=== PATIENT | female | born 2000 | race Caucasian/White ===

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

== ENCOUNTER 2018-12-26 19:10 | Emergency (ER) | payer OTHER ==
[2018-12-26] MEDS ORDERED: Ketorolac 60 MG/2 ML SDV IM ONE (19:26)
--- NOTE | 2018-12-26 19:31 | EDM.PDOC ---
ED HPI GENERAL MEDICAL PROBLEM - General Chief Complaint: Back Pain or Injury Stated Complaint: BACK PAIN Time Seen by Provider: 12/26/18 19:22 Source of Information: Reports: Patient History Limitations: Reports: No Limitations - History of Present Illness INITIAL COMMENTS - FREE TEXT/NARRATIVE: HISTORY AND PHYSICAL: History of present illness: Patient is a 18-year-old female who presents to the emergency room with complaints of low lumbar back pain. She reports earlier this afternoon she was bending over to pick something up when she felt a "pop" to her low back. She states throughout the day she has had generalized back pain across her lumbar region which occasionally will shoot up her spine or down her left leg. She denies any injury, trauma or falls. Denies any urinary or fecal incontinence. Denies any numbness, tingling or saddle paresthesia. Patient denies any fever, chills, headache, change in vision, syncope or near syncope. Denies any chest pain, back pain, shortness of breath or cough. Denies any abdominal pain, nausea, vomiting, diarrhea, constipation or dysuria. Has not noted any blood in urine or stool. Patient has been eating and drinking appropriately. Review of systems: As per history of present illness and below otherwise all systems reviewed and negative. Past medical history: As per history of present illness and as reviewed below otherwise noncontributory. Surgical history: As per history of present illness and as reviewed below otherwise noncontributory. Social history: See social history for further information Family history: As per history of present illness and as reviewed below otherwise noncontributory. Physical exam: General: Well-developed and well-nourished 18-year-old female. Alert and oriented. Nontoxic appearing and in no acute distress. HEENT: Atraumatic, normocephalic, pupils equal and reactive bilaterally, negative for conjunctival pallor or scleral icterus, mucous membranes moist, TMs normal bilaterally, throat clear, neck supple, nontender, trachea midline. No drooling or trismus noted. No meningeal signs. No hot potato voice noted. Lungs: Clear to auscultation, breath sounds equal bilaterally, chest nontender. Heart: S1S2, regular rate and rhythm without overt murmur Abdomen: Soft, nondistended, nontender. Negative for masses or hepatosplenomegaly. Negative for costovertebral tenderness. Pelvis: Stable nontender. C-spine/Back: No pinpoint vertebral tenderness upon palpation. No crepitus, step -offs or obvious deformities. Patient is ambulatory into the emergency room without difficulty or deficit. Able to rock back on heels and walk on toes. Denies any urinary or fecal incontinence. Denies any numbness, tingling or saddle paresthesia. Skin: Intact, warm, dry. No lesions or rashes noted. Extremities: Atraumatic, moves all extremities per self without difficulty or deficits, negative for cords or calf pain. Neurovascular unremarkable. Neuro: Awake, alert, oriented. Cranial nerves II through XII unremarkable. Cerebellum unremarkable. Motor and sensory unremarkable throughout. Exam nonfocal. Notes: X-ray shows mild levoscoliosis, narrowing of L5-S1, which may be physiologic. Medication education and supportive care measures were reviewed and discussed. Voices understanding and is agreeable to plan of care. Denies any further questions or concerns at this time. Diagnostics: UA, HCGU, Lumbar back xray Therapeutics: Toradol IM Prescription: Flexeril and Diclofenac Impression: Lumbar back pain with sciatica Plan: 1. When resting please lay on a flat firm surface. Limit your immobility to prevent muscle stiffness. Get up to ambulate/move around/gentle stretching multiple times throughout the day. May alternate heat and ice to the painful areas 2. Tylenol as needed for back pain. Otherwise take the prescribed Flexeril and diclofenac as directed. Diclofenac is an anti-inflammatory so do not take any additional NSAIDs with this medication, such as ibuprofen or Aleve. Flexeril as a muscle relaxant, this medication may cause drowsiness a do not take it will driving her needing to be functioning outside of the house. 3. Please follow-up with your primary care provider as we discussed. Return to the ED as needed and as discussed. Definitive disposition and diagnosis as appropriate pending reevaluation and review of above. Lower Back Pain Score (Numeric/FACES): 8 - Related Data Allergies Allergy/AdvReac Type Severity Reaction Status Date / Time azithromycin [From Zithromax] Allergy vomit Verified 02/26/16 15:24 Home Meds: Home Meds Blood Sugar Diagnostic [Contour] 02/26/16 [History] Escitalopram [Lexapro] 02/26/16 [History] Insulin Glarg,Human.Rec.Analog [LantUS Solostar] 02/26/16 [History] Cyclobenzaprine [Flexeril] 10 mg PO TID PRN #21 tab 12/26/18 [Rx] Diclofenac Sodium [Voltaren] 75 mg PO BIDMEALS PRN #30 tab.cr 12/26/18 [Rx] Past Medical History HEENT History: Reports: Sinusitis Gastrointestinal History: Reports: Celiac Disease Psychiatric History: Reports: Anxiety, Depression, Suicide Attempt, Suicidal Ideation Endocrine/Metabolic History: Reports: Diabetes, Type I - Infectious Disease History Infectious Disease History: Reports: None - Past Surgical History HEENT Surgical History: Reports: Adenoidectomy, Polypectomy, Tonsillectomy Social & Family History - Family History Family Medical History: Noncontributory - Tobacco Use Smoking Status *Q: Never Smoker Second Hand Smoke Exposure: No - Caffeine Use Caffeine Use: Reports: Coffee - Recreational Drug Use Recreational Drug Use: No ED ROS GENERAL - Review of Systems Review Of Systems: Comprehensive ROS is negative, except as noted in HPI. ED EXAM,LOWER BACK PAIN/INJURY - Physical Exam Exam: See Below (See dictation) Course - Vital Signs Last Recorded V/S: Last Vital Signs Temp 97 F 12/26/18 19:23 Pulse 88 12/26/18 19:23 Resp 16 12/26/18 19:23 BP 128/89 12/26/18 19:23 Pulse Ox 99 12/26/18 19:23 - Orders/Labs/Meds Labs: Laboratory Tests 12/26/18 Range/Units 19:26 Urine HCG, Qual NEGATIVE (NEGATIVE) Meds: Medications Discontinued Medications Generic Name Dose Route Start Last Admin Trade Name Dung PRN Reason Stop Dose Admin Ketorolac Tromethamine 60 mg 12/26/18 19:26 12/26/18 19:59 Toradol IM 12/26/18 19:27 60 mg ONETIME ONE Administration Departure - Departure Time of Disposition: 20:26 Disposition: Home, Self-Care 01 Clinical Impression: Lumbar back pain - Discharge Information Prescriptions: Cyclobenzaprine [Flexeril] 10 mg PO TID PRN #21 tab PRN Reason: Muscle Spasm Diclofenac Sodium [Voltaren] 75 mg PO BIDMEALS PRN #30 tab.cr PRN Reason: Pain Instructions: Muscle Strain, [id number] Referrals: Oliverio Castellon MD [Primary Care Provider] - Forms: ED Department Discharge Additional Instructions: The following information is given to patients seen in the emergency department who are being discharged to home. This information is to outline your options for follow-up care. We provide all patients seen in our emergency department with a follow-up referral. The need for follow-up, as well as the timing and circumstances, are variable depending upon the specifics of your emergency department visit. If you don't have a primary care physician on staff, we will provide you with a referral. We always advise you to contact your personal physician following an emergency department visit to inform them of the circumstance of the visit and for follow-up with them and/or the need for any referrals to a consulting specialist. The emergency department will also refer you to a specialist when appropriate. This referral assures that you have the opportunity for follow-up care with a specialist. All of these measure are taken in an effort to provide you with optimal care, which includes your follow-up. Under all circumstances we always encourage you to contact your private physician who remains a resource for coordinating your care. When calling for follow-up care, please make the office aware that this follow-up is from your recent emergency room visit. If for any reason you are refused follow-up, please contact the [facility] Emergency Department at and asked to speak to the emergency department charge nurse. [facility] [address] [place], [place] [id number] [place] [address] 1. When resting please lay on a flat firm surface. Limit your immobility to prevent muscle stiffness. Get up to ambulate/move around/gentle stretching multiple times throughout the day. May alternate heat and ice to the painful areas 2. Tylenol as needed for back pain. Otherwise take the prescribed Flexeril and diclofenac as directed. Diclofenac is an anti-inflammatory so do not take any additional NSAIDs with this medication, such as ibuprofen or Aleve. Flexeril as a muscle relaxant, this medication may cause drowsiness a do not take it will driving her needing to be functioning outside of the house. 3. Please follow-up with your primary care provider as we discussed. Return to the ED as needed and as discussed.
--- NOTE | 2018-12-26 20:22 | CR ---
Indication: Low-back pain. Technique: Three views of the lumbar spine were obtained. Comparison: None Findings: Mild levoscoliosis of the upper lumbar spine is identified. The vertebral body heights are well maintained. Intervertebral disc space narrowing is identified at L5-S1 which may be physiologic. No fracture is identified. Impression: Mild levoscoliosis. Narrowing at L5-S1, which may be physiologic. Dictated by Shruthi Michele MD @ Dec 26 2018 8:19PM Signed by Dr. Shruthi Michele @ Dec 26 2018 8:20PM
[2018-12-26 20:44] VITALS: BP 112/73; PULSE 80
== END 2018-12-26 20:40 | disposition home or self-care (01) ==
LOC: MW.ED 19:10
DX: M54.42 Lumbago with sciatica, left side (principal); E11.9 Type 2 diabetes mellitus without complications; Z88.1 Allergy status to other antibiotic agents; Z79.4 Long term (current) use of insulin; Z98.890 Other specified postprocedural states
CPT/HCPCS: 72100; 81025; 96372; 99284; J1885; 99283

== ENCOUNTER 2020-12-07 21:44 | Emergency (ER) | payer OTHER, BC ==
[2020-12-07] MEDS ORDERED: Amoxicillin/Clavulanate K 875-125 MG Tab PO ONE (21:54)
[2020-12-07 21:58] VITALS: BP 128/97; PULSE 112
[2020-12-07] MEDS ORDERED: Ketorolac 15 MG/ML SDV IM ONE (22:04)
--- NOTE | 2020-12-07 23:30 | CR ---
HISTORY: Dog bite to the distal 3rd finger. Evaluate for foreign body. COMPARISON: None available. FINDINGS: The left hand is examined with PA, lateral, and oblique views. The technologist indicates pain in the area of the anterior 3rd DIP joint region. There is soft tissue irregularity along the radial and anterior aspect of the 3rd DIP joint consistent with laceration, with no sign of any radiopaque foreign body. There is no sign of any underlying osseous injury. There is no sign of fracture or dislocation elsewhere. The soft tissues elsewhere are normal in appearance without sign of additional aspiration or radio-opaque foreign body. No degenerative disease is seen. IMPRESSION: Laceration in the anterior and radial aspect of the 3rd DIP joint with no sign of radiopaque foreign body or underlying osseous injury. Dictated by Fabiano Pennington MD @ 12/07/2020 11:28:01 PM (Electronically Signed)
--- NOTE | 2020-12-07 23:50 | EDM.PDOC ---
ED HPI GENERAL MEDICAL PROBLEM - General Chief Complaint: Bite:Animal, Insect Stated Complaint: ATTACKED BY A DOG Time Seen by Provider: 12/07/20 21:55 - History of Present Illness INITIAL COMMENTS - FREE TEXT/NARRATIVE: CHIEF COMPLAINT(S): Dog bite HISTORY OF PRESENT ILLNESS: This is a 20-year-old man without any significant past medical history who comes to the emergency department with a chief complaint of a dog bite. 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 She states that there was some bleeding. She states that she is currently experiencing 10 out of 10 throbbing pain in her left middle finger. She denies any other injury. She states that her tetanus is up-to-date. She denies any numbness, tingling, or weakness. She denies any radiation of the pain. She states that movement exacerbates the pain. There are no relieving factors. She has not yet tried any pain medication. She states that the dog is not vac cinated but was not acting rapid. The dog is able to be quarantined. REVIEW OF SYSTEMS: Constitutional: Denies fever, chills. Eyes: Denies eye pain Ears, Nose, Mouth, & Throat: Denies earache Cardiovascular: Denies chest pain Respiratory: Denies shortness of breath Gastrointestinal: Denies Nausea, vomiting, diarrhea, hematochezia. Genitourinary: Denies hematuria Skin: Positive for dog bite to left middle finger MSK: Positive for left middle finger pain Neurological: Denies blurred vision Psychiatric: Denies depression PAST MEDICAL HISTORY: As per history of present illness and as reviewed below otherwise noncontributory. SURGICAL HISTORY: As per history of present illness and as reviewed below otherwise noncontributory. SOCIAL HISTORY: As per history of present illness and as reviewed below otherwise noncontributory. FAMILY HISTORY: As per history of present illness and as reviewed below otherwise noncontributory. EXAMINATION OF ORGAN SYSTEMS/BODY AREAS: Constitutional: Blood pressure is 128/97, heart rate 112, respiratory rate 18 with an oxygen saturation 99% on room air. Temperature 36.4 General: Well-appearing woman who is in no acute distress Psychiatric: Appropriate mood and affect. Eyes: No scleral icterus or conjunctival erythema ENMT: Moist mucous membranes. No pharyngeal erythema no blood in the oropharynx Cardiovascular: Regular, rate, and rhythm. No gallops, murmurs, or rubs. Bilateral upper extremity pulses symmetric and intact. Capillary refill of the left distal middle finger is less than 2 seconds Respiratory: Lungs clear to auscultation bilaterally. No wheezes, rales, or rhonchi. Musculoskeletal: The patient has full range of motion of the left wrist and left digits. No deformity. Skin: There appears to be a approximate 3 cm laceration to the patient's distal left middle finger Neurological: Alert, GCS 15 distal sensation is intact MEDICAL DECISION MAKING AND COURSE IN THE ED WITH INTERPRETATION/REVIEW OF DIAGNOSTIC STUDIES: This is a 20-year-old woman without any significant past medical history who is up-to-date with her tetanus who comes to the emergency department with a laceration secondary to a dog bite on her left middle finger. The patient is right-hand dominant. At this time for pain relief we will perform a nerve block given the patient is neurovascularly intact. In addition we will obtain a left hand x-ray to evaluate for foreign body. Given the patient is up-to-date on her tetanus I do not believe any tetanus prophylaxis is indicated. The dog can be quarantined for the next 10 days. We will provide the patient with Toradol for pain relief and provide her with her first dose of Augmentin. She was amenable to this plan. Using approximately 4 cc of 1% lidocaine the middle finger was cleaned with ChloraPrep and approximately 2 cc were injected on the lateral sides of the left middle finger without any complications. On reevaluation patient had significant relief in her pain. At this time we will wash the patient's finger for 10 minutes under a faucet with cold water. The radiological images were viewed by myself along with reading the report from the radiologist. Left hand x-ray does not reveal any foreign body or fracture. After imaging I did perform loose suture repair given the length of the laceration. I did discuss strict return precautions with the patient. She is to follow-up with hand surgery. She was amenable discharge and had no further questions. Laceration Repair Note Repair of the 3 cm left middle finger wound was done by myself. Wound was irrigated well with tap water. No foreign bodies were noted. The wound was repaired loosely with 4 4-0 directed nylon sutures. DISPOSITION: The patient was discharged home in stable condition. The patient wi ll follow up with hand surgery within 5 to 7 days CONDITION: Fair PROCEDURES: Laceration repair FINAL IMPRESSION(S)/DIAGNOSES: 1. Acute dog bite to left middle finger 2. Acute laceration secondary to dog bite of left middle finger status post suture repair Fransico Catherine M.D. Left Finger-Middle Pain Score (Numeric/FACES): 8 - Related Data Allergies Allergy/AdvReac Type Severity Reaction Status Date / Time azithromycin [From Zithromax] Allergy vomit Verified 12/07/20 21:57 Home Meds: Home Meds Blood Sugar Diagnostic [Contour] 02/26/16 [History] Escitalopram [Lexapro] 02/26/16 [History] Insulin Glarg,Human.Rec.Analog [LantUS Solostar] 02/26/16 [History] Cyclobenzaprine [Flexeril] 10 mg PO TID PRN #21 tab 12/26/18 [Rx] Diclofenac Sodium [Voltaren] 75 mg PO BIDMEALS PRN #30 tab.cr 12/26/18 [Rx] Amoxicillin/Clavulanate K [Augmentin 875-125 MG] 1 tab PO BID #14 tablet 12/07/20 [Rx] Past Medical History HEENT History: Reports: Sinusitis Gastrointestinal History: Reports: Celiac Disease Psychiatric History: Reports: Anxiety, Depression, Suicide Attempt, Suicidal Ideation Endocrine/Metabolic History: Reports: Diabetes, Type I - Infectious Disease History Infectious Disease History: Reports: None - Past Surgical History HEENT Surgical History: Reports: Adenoidectomy, Polypectomy, Tonsillectomy Social & Family History - Family History Family Medical History: No Pertinent Family History - Tobacco Use Tobacco Use Status *Q: Never Tobacco User Second Hand Smoke Exposure: No - Caffeine Use Caffeine Use: Reports: Coffee - Recreational Drug Use Recreational Drug Use: No ED ROS GENERAL - Review of Systems Review Of Systems: See Below ED EXAM, ANIMAL BITE - Physical Exam Exam: See Below Course - Vital Signs Last Recorded V/S: Last Vital Signs Temp 36.4 C 12/07/20 21:53 Pulse 112 H 12/07/20 21:53 Resp 18 12/07/20 21:53 BP 128/97 H 12/07/20 21:53 Pulse Ox 99 12/07/20 21:53 - Orders/Labs/Meds Meds: Medications Discontinued Medications Generic Name Dose Route Start Last Admin Trade Name Dung PRN Reason Stop Dose Admin Amoxicillin/Clavulanate Potassium 1 tab 12/07/20 21:54 12/07/20 22:12 Amoxicillin/Clavulanate K 875-125 Mg Tab PO 12/07/20 21:55 1 tab ONETIME ONE Administration Ketorolac Tromethamine 15 mg 12/07/20 22:04 12/07/20 22:12 Ketorolac 15 Mg/Ml Sdv IM 12/07/20 22:05 15 mg ONETIME ONE Administration Lidocaine HCl Confirm 12/07/20 22:06 12/07/20 22:12 Lidocaine 1% 5 Ml Sdv Administered 12/07/20 22:07 5 ml Dose Administration 5 ml .ROUTE .STK-MED ONE Departure - Departure Time of Disposition: 23:49 Disposition: Home, Self-Care 01 Condition: Fair Clinical Impression: Dog bite, Laceration - Discharge Information *PRESCRIPTION DRUG MONITORING PROGRAM REVIEWED*: No *COPY OF PRESCRIPTION DRUG MONITORING REPORT IN PATIENT TRACY: No Prescriptions: Amoxicillin/Clavulanate K [Augmentin 875-125 MG] 1 tab PO BID #14 tablet Instructions: Animal Bite, Adult, [id number], Laceration Care, Adult Referrals: Oliverio Castellon MD [Primary Care Provider] - Forms: ED Department Discharge Additional Instructions: You were evaluated today on an emergent basis. At this time we did place some loose stitches in your left finger. It is important that you monitor for any pus drainage, increased redness or worsening pain. If you have any of those I would like you to return to the emergency department. I would like you to follow-up with hand surgery for further evaluation. Please contact the number below for a follow-up appointment within the next 5 to 7 days. Please use the antibiotics as prescribed and use Tylenol and Motrin for pain relief. Please keep your left hand elevated. Please use: Tylenol 500-1000mg every 6 hours (DO NOT TAKE MORE THAN 4000mg in 1 day) Ibuprofen 400mg every 6 hours (Take with food as it can cause ulcers, GI upset) Example schedule: 8:00 AM (Tylenol 500-1000mg) 11:00 AM (Ibuprofen 400mg) 2:00 PM (Tylenol 500-1000mg) 5:00 PM (Ibuprofen 400mg) [facility] [phone] ZENAIDA Alegre The patient is informed of any results of their evaluation and diagnostic workup and all questions are answered. They are given discharge instructions and return precautions. The patient is stable for discharge. The patient states they understand and agree with the plan and that they will return if their symptoms get worse or if they have any new concerns. The following information is given to patients seen in the emergency department who are being discharged to home. This information is to outline your options for follow-up care. We provide all patients seen in our emergency department with a follow-up referral. The need for follow-up, as well as the timing and circumstances, are variable depending upon the specifics of your emergency department visit. If you don't have a primary care physician on staff, we will provide you with a referral. We always advise you to contact your personal physician following an emergency department visit to inform them of the circumstance of the visit and for follow-up with them and/or the need for any referrals to a consulting specialist. The emergency department will also refer you to a specialist when appropriate. This referral assures that you have the opportunity for follow-up care with a specialist. All of these measure are taken in an effort to provide you with optimal care, which includes your follow-up. Under all circumstances we always encourage you to contact your private physician who remains a resource for coordinating your care. When calling for follow-up care, please make the office aware that this follow-up is from your recent emergency room visit. If for any reason you are refused follow-up, please contact the [facility] Emergency Department at and asked to speak to the emergency department charge nurse. Sepsis Event Note (ED) - Evaluation Sepsis Screening Result: No Definite Risk - Focused Exam Vital Signs: Vital Signs Temp Pulse Resp BP Pulse Ox 12/07/20 21:53 36.4 C 112 H 18 128/97 H 99
== END 2020-12-08 00:18 | disposition home or self-care (01) ==
LOC: MW.ED 21:44
DX: S61.253A Open bite of left middle finger without damage to nail, initial encounter (principal); E10.9 Type 1 diabetes mellitus without complications; Z88.1 Allergy status to other antibiotic agents; Z79.899 Other long term (current) drug therapy; W54.0XXA Bitten by dog, initial encounter; Y92.89 Other specified places as the place of occurrence of the external cause; Y99.0 Civilian activity done for income or pay
CPT/HCPCS: 12002; 73130; 96372; 99283; A9270; J1885

== ENCOUNTER 2021-04-14 08:03 | Emergency (ER) | payer BC, OTHER ==
[2021-04-14] MEDS ORDERED: Ibuprofen 600 MG Tab PO ONE (09:15)
[2021-04-14] MEDS ORDERED: Sulfamethoxazole/Trimethoprim 800-160 MG Tab PO ONE (09:15)
[2021-04-14 09:29] VITALS: BP 106/72; PULSE 99
== END 2021-04-14 09:29 | disposition home or self-care (01) ==
LOC: MW.ED 08:03
DX: H00.015 Hordeolum externum left lower eyelid (principal); E10.9 Type 1 diabetes mellitus without complications; Z88.1 Allergy status to other antibiotic agents
CPT/HCPCS: 99283; A9270; 99282

== ENCOUNTER 2024-04-20 18:15 | Emergency (ER) | payer BC ==
[2024-04-20 19:26] VITALS: BP 117/77; PULSE 89
== END 2024-04-20 19:26 | disposition home or self-care (01) ==
LOC: MW.ED 18:15
DX: H10.9 Unspecified conjunctivitis (principal); E10.9 Type 1 diabetes mellitus without complications; Z79.4 Long term (current) use of insulin; Z88.1 Allergy status to other antibiotic agents
CPT/HCPCS: 99282